=== PATIENT | male | born 1960 | race Caucasian/White ===

== ENCOUNTER → 2021-07-10 | Outpatient (CLI) | payer OTHER ==
--- NOTE | 2021-07-10 13:19 | KCIC ---
EXAM: CT coronary artery calcium screening; radiologist over read. HISTORY: Right bundle branch block. Coronary artery calcium screening. TECHNIQUE: Computed tomographic images of the chest were obtained without contrast. Multiplanar refor matting was performed. *One or more of the following individualized dose reduction techniques were utilized for this examina tion: 1. Automated exposure control. 2. Adjustment of the mA and/or kV according to patient size. 3. Use of iterative reconstruction technique. COMPARISON: None. FINDINGS: The heart is normal in size. The visualized aorta is normal in caliber. There is no lymphad enopathy. There is no infiltrate, pleural effusion or pneumothorax. There is no suspicious pulmonary nodule. There is no acute finding involving the upper abdomen. There is gynecomastia. There is no alisha picious or acute osseous finding. Coronary artery calcium score: 0. IMPRESSION: 1. Coronary artery calcium score of 0. No identifiable calcified atherosclerotic plaque. 2. No acute thoracic finding. Electronically signed by: Milagro Polanco MD (07/10/2021 1:16 PM) [id number]
== END ==
LOC: KCIC CT 13:33
PROVIDERS: ATTEND Nurse Practitioner
DX: Z13.6 Encounter for screening for cardiovascular disorders (principal); N62 Hypertrophy of breast; I45.0 Right fascicular block
CPT/HCPCS: 75571